=== PATIENT | male | born 1980 | race Caucasian/White ===

== ENCOUNTER 2020-02-10 08:50 | Inpatient (IN) ==
--- NOTE | 2020-02-06 11:47 | Anesthesiology Consultation ---
Date of Service February 06, 2020 Assessment & Plan (1) Encounter for pre-operative examination: Chart Review Chart Review: Acceptable Risk for Surgery and Patient NOT seen in Pre Admission Testing Left L5-S1 microdiscectomy 10/28/13= Done under GA- Grade 3 view with MAC #3 with ETT # 7.5 - no issues noted per anesthesia record History Surgery Operation Date: 02/10/20 10:35 Proposed Procedures p L5-S1 Decompression and Fusion, Spinal Cord Monitoring - Chalino Kwong DO Height/Weight Height: 6 ft 2 in Weight: 104.326 kg Allergies Allergy/AdvReac Type Severity Reaction Status Date / Time cashew nut Allergy Severe throat Verified 02/10/20 09:10 swells up/rash all over body tramadol AdvReac Mild Gastrointestinal Verified 02/10/20 09:10 Upset Medications Home Medications Medication Instructions Recorded Confirmed Last Taken omeprazole magnesium [Prilosec OTC] 20 mg PO DAILY PRN 02/05/20 02/10/20 02/10/20 07:30 Active Medications Generic Name Dose Route Start Last Admin Trade Name Shayna PRN Reason Stop Dose Admin Acetaminophen 1,000 mg 02/10/20 06:00 02/10/20 09:32 Tylenol PO 02/10/20 18:00 1,000 mg PREOP TIFFANY Administration Celecoxib 200 mg 02/10/20 06:00 02/10/20 09:32 Celebrex PO 02/10/20 18:00 200 mg PREOP TIFFANY Administration Gabapentin 900 mg 02/10/20 06:00 02/10/20 09:32 Neurontin PO 02/10/20 18:00 900 mg PREOP TIFFANY Administration Lactated Ringer's 1,000 mls @ 15 mls/hr 02/10/20 06:00 02/10/20 09:33 Lr IV 02/11/20 05:59 15 mls/hr .Q24H TIFFANY Administration Past Medical History Medical History Degenerative disc disease History of anxiety no meds currently History of kidney cancer 2009--left kidney History of kidney stones History of tachycardia very intermittent, pt states approx once a year it happens, 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 Lumbar stenosis Melanoma of left side of neck Sleep apnea cpap Past Family History Family History Mother Family history of diabetes mellitus Family hx colonic polyps Grandmother (Maternal) Family history of diabetes mellitus Family hx colonic polyps Uncle Family history of diabetes mellitus Family hx colonic polyps Uncle Family history of diabetes mellitus Family hx colonic polyps Aunt Family hx colonic polyps Other No family history of adverse response to anesthesia Past Surgical History Surgical History History of fusion of cervical spine normal ROM History of melanoma excision with sentinel lymph node removal of left side of neck History of partial nephrectomy left kidney 09/2010 @ [facility] [place] History of wisdom tooth extraction Status post lumbar microdiscectomy 10/29/13 @ [facility] Dr. Kwon L5-S1 Social History Smoking Status: Former smoker tobacco type: smokeless tobacco Do You Dip or Chew Tobacco: Yes (1 1/2cans a day) Smoking End Date: quit 18 yrs ago Hx Alcohol Use: Yes Alcohol type: beer and wine alcohol intake frequency: holidays/special occasions only Hx Substance Use: No substance use type: does not use Physical Exam Vital Signs Last Vital Signs Temp 37.5 C 02/10/20 09:20 Pulse 86 02/10/20 09:20 Resp 18 02/10/20 09:20 BP 117/83 02/10/20 09:20 Pulse Ox 99 02/10/20 09:20 Testing Laboratory Results Urine Color Yellow 02/10/20 09:07 Urine Appearance Clear (Clear) 02/10/20 09:07 Urine pH 5.0 (4.5-7.5) 02/10/20 09:07 Ur Specific [place] 1.022 (1.000-1.030) 02/10/20 09:07 Urine Protein Negative (Negative) 02/10/20 09:07 Urine Glucose (UA) Negative (Negative) 02/10/20 09:07 Urine Ketones Negative (Negative) 02/10/20 09:07 Urine Nitrite Negative (Negative) 02/10/20 09:07 Ur Leukocyte Esterase Negative (Negative) 02/10/20 09:07 Blood Type O Positive 02/10/20 09:07 Antibody Screen NEGATIVE 02/10/20 09:07 02/05/20= WBC: 5.34 H/H: 14.3/43.3 PLATELETS: 293 SODIUM: 143 POTASSIUM: 4.7 CHLORIDE: 104 CO2: 27 BUN: 11 CREATININE: 1.1 GLUCOSE: 105 Electrocardiogram Date: 02/06/20 Findings: + NSR @ (63) and + no change from (April 16, 2018) Chest X-Ray Date: 02/05/20 Findings: + NAD There is ACDF hardware in the lower cervical spine
--- NOTE | 2020-02-09 14:22 | History & Physical Report ---
Date of Service February 09, 2020 Assessment & Plan (1) Recurrent herniation of lumbar disc: This time the patient had a marked decline in status. He has recurrence of the discrimination at L5-S1 with significant progressive weakness affecting the left lower extremity. We are recommending urgent revision pression and fusion L5-S1. This will allow us nerves addressing recurrent disc herniation. This will progression of weakness and he will he may regain some recovery and avoid permanent neurologic sequelae. Risk benefits pros cons and alternatives were outlined in detail. Present on Admission?: Yes History of Present Illness Chief Complaint: Left leg pain and weakness This is a 39-year-old male who presents with marked decline in status noting significant left leg sciatica with weakness. He does have history of previous laminotomy at L5-S1 years ago. He had recurrent symptoms several months ago beginning with lumbosacral back pain rating into the left buttock posterior thigh into the calf and heel. It has been progressive in nature. He notes marked difficulty with pushoff on the left lower extremity compared to the right lower extremity. He has failed a course of nonoperative care and remarkably limited at this time unable to work. Allergies Allergy/AdvReac Type Severity Reaction Status Date / Time cashew nut Allergy Severe throat Verified 02/05/20 15:58 swells up/rash all over body tramadol AdvReac Mild Gastrointestinal Verified 02/05/20 15:58 Upset Home Medications Home Medications Medication Instructions Recorded Confirmed Type omeprazole magnesium [Prilosec OTC] 20 mg PO DAILY PRN 02/05/20 02/05/20 History Past Med/Surg History Medical History Degenerative disc disease History of anxiety no meds currently History of kidney cancer 2009--left kidney History of kidney stones History of tachycardia very intermittent, pt states approx once a year it happens, 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 Kwon L5-S1 Family History Mother Family history of diabetes mellitus Family hx colonic polyps Grandmother (Maternal) Family history of diabetes mellitus Family hx colonic polyps Uncle Family history of diabetes mellitus Family hx colonic polyps Uncle Family history of diabetes mellitus Family hx colonic polyps Aunt Family hx colonic polyps Other No family history of adverse response to anesthesia Social History Preferred Language: Upper Sorbian Communication Ability: Effective Clinic Charge Nurse Required: No Beliefs That Will Affect Care: None Current Living Situation: Spouse and Family Current Living Situation Comment: Lives with and daughter Other Information That Helps Us Care for You: No Feels Safe at Home: Yes Safety Concerns: Feels Safe At This Time Smoking Status: Former smoker Tobacco Type: smokeless tobacco ; Do You Dip or Chew Tobacco: Yes (1 1/2cans a day) ; Smoking End Date: quit 18 yrs ago ; Second Hand Exposure: Yes (parents smoked) ; Tobacco Cessation Education Requested by Patient: No Hx Alcohol Use: Yes Alcohol type: beer and wine Hx Substance Use: No Physical Exam Physical Exam: Patient is alert and oriented He is able to stand and ambulate about the room with an antalgic gait. He has marked deficits with single heel raise with the left lower extremity compared to the right lower extremity. Dorsiflexion quadriceps are however a 5 or 5 bilaterally. He does have sensory deficits to left lower extremity compared to the right. Heart is regular rate and rhythm Lungs clear to auscultation Results & Data Diagnostic Findings MRI lumbar spine demonstrates relative maintenance of lumbar lordosis with evidence of advanced degenerative change at the L5-S1 level. There is evidence of Modic disease involving endplates. There is evidence of a massive central disc herniation favoring the left side at the L5-S1 level. There is advanced neuroforaminal stenosis L5-S1 on the left. There is marked displacement of traversing roots at this level. All other levels are relatively benign.
[~2020-02-10 08:50] MED LIST: ACETAMINOPHEN 500 MG TAB PO SCH; CEFAZOLIN 2000MG 2,000 MG/15 ML SYR IV SCH; CeleBREX 200 MG CAP PO SCH; GABAPENTIN 900 MG DOSE PO SCH; LR 15ML/HR IV SCH
[2020-02-10] MEDS ORDERED: DEXAMETHASONE SOD INJ 4 MG/ML VIAL ONE (09:33)
[2020-02-10] MEDS ORDERED: ROCURONIUM BROMIDE 10 MG/ML 5 ML VIAL ONE ×5 (09:33→12:46)
[2020-02-10] MEDS ORDERED: PROPOFOL IV EMULSION 10 MG/ML 20 ML VIAL IV ONE (09:33)
[2020-02-10] MEDS ORDERED: HYDROmorphone INJ 2 MG/ML SYR/VIAL ONE (09:33)
[2020-02-10] MEDS ORDERED: ONDANSETRON INJ 2 MG/ML 2 ML VIAL ONE (09:33)
[2020-02-10] MEDS ORDERED: fentaNYL citrate 100 MCG/2 ML VIAL ONE ×4 (09:33→14:01)
[2020-02-10] MEDS ORDERED: MIDAZOLAM HCL 1 MG/ML 2ML VIAL ONE (09:33)
[2020-02-10] MEDS ORDERED: LIDOCAINE HCL 2% 2 ML VIAL/AMP(20MG/ML) INFIL ONE (09:33)
[2020-02-10 09:38] LABS: Appearance Urine Clear (Clear); Bilirubin Urine Negative (Negative); Blood Urine Negative (Negative); Color Urine Yellow; Glucose Urine UA Negative (Negative); Ketones Urine Negative (Negative); Leukocyte Esterase Urine Negative (Negative); Nitrite Urine Negative (Negative); Protein Urine Negative (Negative); Specific Gravity Urine 1.022 (1.000-1.030); Urobilinogen Urine Negative (Negative)
[2020-02-10] MEDS ORDERED: PROMETHAZINE HCL 12.5 MG in SODIUM CHLORIDE 0.9% 50 ML IV PRN ×2 (10:40→15:07)
[2020-02-10] MEDS ORDERED: HYDROmorphone INJ 2 MG/ML SYR/VIAL IV PRN (10:40)
[2020-02-10] MEDS ORDERED: ePHEDrine sulfate 50 MG/ML AMP IV PRN (10:40)
[2020-02-10] MEDS ORDERED: ONDANSETRON INJ 2 MG/ML 2 ML VIAL IV PRN ×2 (10:40→15:07)
[2020-02-10] MEDS ORDERED: ATROPINE SULFATE 0.1 MG/ML 10ML SYR IV PRN (10:40)
--- NOTE | 2020-02-10 10:45 | History & Physical Bridge Note ---
Date of Service February 10, 2020 History & Physical Bridge Note I have examined the patient, reviewed the History & Physical and in the interval since the performance of the History & Physical I have noted the following changes of clinical significance: no changes noted
[2020-02-10] MEDS ORDERED: BACITRACIN INJ 50,000 UNIT VIAL ONE (11:15)
[2020-02-10] MEDS ORDERED: BUPIVACAINE/EPINEPHRINE 0.5% MPF 1:200,000 10 ML VIAL ONE (11:15)
[2020-02-10] MEDS ORDERED: FLOSEAL HEMOSTATIC MATRIX 10ML TOP ONE (12:45)
--- NOTE | 2020-02-10 13:26 | Operative Report ---
Post Operative Report Pre & Post Diagnosis Operation Date: 02/10/20 10:35 Pre-Op Diagnosis: Recurrent herniation of lumbar disc Post-Op Diagnosis: Recurrent herniation of lumbar disc I identified the patient and participated in the time-out.: Yes Procedure Operation Date: 02/10/20 10:35 Actual Procedures #1 revision decompression fusion L5-S1. #2 posterior spinal fusion L5-S1. #3 placement posterior instrumentation L5-S1. #4 interbody fusion L5-S1. #5 placement peek cage 12 x 26 mm at L5-S1. #6 placement locally harvested morselized autograft in the posterior lateral gutters. #7 placement infuse collagen sponge count master graft in the posterior lateral gutters and ostial amp and interbody space. Surgeon Chalino Kwong DO Open Winder Lacie Mclaughlin Estimated Blood Loss 100 Findings Consistent with Post-Op Diagnosis Specimens None Indications This is a 39-year-old male who presents with a recurrent disc herniation at L5- S1 and progressive neurologic deficit affecting the left lower extremity. Subsequently we progressed with an urgent revision decompression and fusion. Description of Procedure Patient was met with identified informed consent obtained. Patient was then taken to the operative suite underwent intubation placed in a prone position the Chance table on top of the Seth frame. All bony prominences well-padded eyes inspected to ensure no external pressure placed upon the bed this point the lumbar spine is prepped and draped in a normal sterile fashion. Sharp dissection with the assistance of Bovie cautery was performed down to and exposing the remaining lamina and transverse processes of L5 and sacral ala bilaterally. From a caudal cephalad fashion a revision complete laminectomy of L5 was performed including bilateral medial facetectomies and foraminotomies. Identified marked scarring of the traversing and exiting nerve roots of L5 and S1 on the left. Pedicle screws were then placed in L 5 and the S1 levels bilaterally with assistance of fluoroscopy and appropriate size klaus placed. By way of a trans-foraminal approach on the left complete discectomy of L4-5 S1 was performed including addressing all herniated fragments. The endplates were then burred to subcortical bleeding bone and a 12 x 26 mm peek cage filled with o steo-bone graft tapped in position. The rods were then locked into final position bilaterally. The transverse processes of L5 and sacral ala burred to subcortical bleeding bone. Infuse collagen sponge master graft local autograft placed in the posterior lateral gutters. 15 round DARREN drain inserted. The incision was then closed with 1 Vicryl in the fascia 2-0 Vicryl subcutaneously and 4 Monocryl for final skin closure. Steri-Strip sterile dressings placed. Patient will continue to PACU stable condition. Please note Lacie Mclaughlin was present at the entire procedure.the patient positioning complex portions of the surgery and final skin closure. Lastly spinal cord monitoring was utilized that the procedure no changes noted. I attest to the content of the Intraoperative Record and any orders documented therein. Any exceptions are noted below.
--- NOTE | 2020-02-10 13:44 | Fluoroscopy Report ---
FL lumbar spine 2-3V CLINICAL HISTORY: L5-S1 DECOMPRESSION AND FUSION COMPARISON STUDY: None. FLUOROSCOPY TIME: 14 seconds. FLUOROSCOPIC IMAGES: 2 FINDINGS: These images demonstrate an L5-S1 discectomy with interbody spacer placement. Posterior dec ompression with bilateral pedicle screw fusion at L5-S1 is noted. The hardware is intact. There are n o unexpected radiopaque foreign bodies. IMPRESSION: Fluoroscopy provided for L5-S1 discectomy, posterior decompression and bilateral pedicle screw fusion. ACT 112: Negative or not required by law. Electronically signed by: Kodak Haskins M.D. 02/10/2020 1:43 PM
[2020-02-10] MEDS ORDERED: KETOROLAC 30 MG/ML VIAL ONE (13:50)
[2020-02-10] MEDS: fentaNYL citrate 100 MCG/2 ML VIAL IV PRN ×2 (14:13→14:19)
--- NOTE | 2020-02-10 14:43 | Anesthesiology Progress Note ---
Date of Service February 10, 2020 Anesthesia Post Procedure Vital Signs Vital Signs: Temp Pulse Pulse Resp BP Pulse Ox 02/10/20 14:30 36.8 C 62 13 118/69 100 02/10/20 14:20 61 12 109/68 99 02/10/20 14:10 63 18 126/41 L 100 02/10/20 14:04 36 C L 65 16 128/62 99 02/10/20 09:20 37.5 C 86 18 117/83 99 Pain Intensity Left Lower Back: Pain Intensity: 6 Back: Pain Intensity: 4 Transfer of Care Handoff Completed per policy Notes Mental Status: alert / awake / arousable and participated in evaluation Patient Amnestic to Procedure: Yes Nausea / Vomiting: adequately controlled Pain: adequately controlled Airway Patency, RR, SpO2: stable & adequate BP & HR: stable & adequate Hydration State: stable & adequate Anesthetic Complications: no major complications apparent and Pt Satisfied with anesthetic care
[2020-02-10] MEDS ORDERED: SOD PHOSPHATE/SOD BIPHOSPHATE ENEMA 132 ML BTL PR PRN (15:07)
[2020-02-10] MEDS ORDERED: bisacodyL 10 MG SUPP PR PRN (15:07)
[2020-02-10] MEDS ORDERED: NALOXONE HCL 0.4 MG/1 ML VIAL/CARP IV PRN (15:07)
[2020-02-10] MEDS ORDERED: DO NOT ADMINISTER PNEUMOCOCCAL VACCINE PRN (15:07)
[2020-02-10] MEDS ORDERED: MAGNESIUM HYDROXIDE SUSP 30 ML UDC PO PRN (15:07)
[2020-02-10] MEDS ORDERED: FAMOTIDINE 20 MG TAB PO PRN (15:07)
[2020-02-10] MEDS ORDERED: DO NOT ADMINISTER FLU VACCINE PRN (15:07)
[2020-02-10] MEDS ORDERED: LORazepam 0.5 MG/1 ML VIAL IV PRN (15:07)
[2020-02-10] MEDS ORDERED: ALUMINUM/MAGNESIUM SUSP 30 ML UDC PO PRN (15:07)
[2020-02-10] MEDS ORDERED: ACETAMINOPHEN 1,000 MG/100 ML VIAL IV PRN (15:07)
[2020-02-10] MEDS ORDERED: METOCLOPRAMIDE HCL INJ 5 MG/ML 2 ML VIAL IV PRN (15:07)
[2020-02-10] MEDS ORDERED: ONDANSETRON 4 MG OD TAB PO PRN (15:07)
[2020-02-10] MEDS ORDERED: PANTOprazole 40 MG TAB PO PRN (15:23)
[2020-02-10 16:00] LABS: Creatinine Clr Calc Pharmacy 135.3 ml/min; Est GFR (African American) 117.9; Est GFR (Non-African American) 101.7
[2020-02-10] MEDS: LACTATED RINGER'S 1,000 ML IV SCH (16:03)
[2020-02-10] MEDS: OXYCODONE HCL IR 5 MG TAB (IMMEDIATE RELEASE) PO PRN ×2 (16:56→21:28)
[2020-02-10] MEDS: DOCUSATE SODIUM/SENNA 50/8.6MG TAB PO SCH (20:00)
[2020-02-10] MEDS: CEFAZOLIN 2000MG 2,000 MG/15 ML SYR IV SCH (20:01)
[2020-02-10] MEDS: KETOROLAC TROMETHAMINE 15 MG/ML VIAL IV SCH (20:01)
[2020-02-10] MEDS: LORazepam 0.5 MG TAB PO PRN (22:31)
[2020-02-11] MEDS: KETOROLAC TROMETHAMINE 15 MG/ML VIAL IV SCH ×3 (03:17→13:01)
[2020-02-11] MEDS: CEFAZOLIN 2000MG 2,000 MG/15 ML SYR IV SCH (03:17)
[2020-02-11] MEDS: LACTATED RINGER'S 1,000 ML IV SCH (03:26)
[2020-02-11] MEDS: POLYETHYLENE (MIRALAX) 17 GM PACK PO SCH ×4 (05:16→23:55)
[2020-02-11 06:02] LABS: Hematocrit (blood only) 36.3 % (42-52); Hemoglobin 12.4 g/dL (14.0-18.0); Immature Granulocytes # (auto) 0.03 K/uL (0.00-0.02); Immature Granulocytes % (auto) 0.3 %; Lymphocytes # (auto) 1.45 K/uL (1.2-3.4); Lymphocytes % (auto) 12.7 %; Mean Corpuscular Hemoglobin 30.3 pg (25-34); Mean Corpuscular Hgb Conc 34.2 g/dL (32-36); Mean Corpuscular Volume 88.8 fL (80-100); Mean Platelet Volume 10.1 fL (7.4-10.4); Monocytes # (auto) 0.74 K/uL (0.11-0.59); Monocytes % (auto) 6.5 %; Neutrophils # (auto) 9.19 K/uL (1.4-6.5); Neutrophils % (auto) 80.5 %; Platelet Count 255 K/uL (130-400); RDW Coefficient of Variation 13.6 % (11.5-14.5); RDW Standard Deviation 44.5 fL (36.4-46.3); Red Blood Count 4.09 M/uL (4.7-6.1); White Blood Count 11.41 K/uL (4.8-10.8)
[2020-02-11 06:31] LABS: Calcium 8.7 mg/dl (8.5-10.1); Creatinine Clr Calc Pharmacy 128.4 ml/min; Est GFR (African American) 110.7; Est GFR (Non-African American) 95.5; Potassium 4.2 mmol/L (3.5-5.1)
[2020-02-11] MEDS: OXYCODONE HCL IR 5 MG TAB (IMMEDIATE RELEASE) PO PRN ×3 (09:11→23:54)
--- NOTE | 2020-02-11 10:44 | Orthopedic Progress Note ---
Date of Service February 11, 2020 Assessment & Plan (1) Recurrent herniation of lumbar disc: At this time we will continue physical therapy monitor his DARREN output hopefully discharge home tomorrow. Present on Admission?: Yes Admission and Anticipated Discharge Date Admission Date: February 10, 2020 Subjective Back pain controlled leg pain improved. Feels her strength is improved. Physical Exam Physical Exam: Patient is comfortable is in bed. He has good strength testing. Results & Data ([facility]) Vital Signs (Past 12 Hours) Vital Signs Temp Pulse Resp BP Pulse Ox 02/11/20 07:47 36.4 C L 72 18 117/74 98 02/11/20 03:00 36.4 C L 69 16 114/71 96 02/10/20 23:00 36.8 C 74 20 117/70 96
[2020-02-11] MEDS: HYDROmorphone INJ 1 MG/ML SYRINGE IV PRN ×3 (14:37→22:12)
[2020-02-11] MEDS: DOCUSATE SODIUM/SENNA 50/8.6MG TAB PO SCH (20:26)
[2020-02-11] MEDS: LORazepam 0.5 MG TAB PO PRN (23:54)
[2020-02-12] MEDS: HYDROmorphone INJ 0.5 MG/0.5 ML SYR IV PRN ×2 (03:21→08:36)
[2020-02-12] MEDS: POLYETHYLENE (MIRALAX) 17 GM PACK PO SCH ×2 (05:55→12:07)
[2020-02-12] MEDS: OXYCODONE HCL IR 5 MG TAB (IMMEDIATE RELEASE) PO PRN ×3 (05:55→15:31)
--- NOTE | 2020-02-12 14:49 | Discharge Summary ---
Date of Service February 12, 2020 Admission HPI Per Admitting Provider This is a 39-year-old male who presents with marked decline in status noting significant left leg sciatica with weakness. He does have history of previous laminotomy at L5-S1 years ago. He had recurrent symptoms several months ago beginning with lumbosacral back pain rating into the left buttock posterior thigh into the calf and heel. It has been progressive in nature. He notes marked difficulty with pushoff on the left lower extremity compared to the right lower extremity. He has failed a course of nonoperative care and remarkably limited at this time unable to work. Principal Diagnosis Recurrent disc herniation L5-S1 Discharge Data Allergies Allergy/AdvReac Type Severity Reaction Status Date / Time cashew nut Allergy Severe throat Verified 02/10/20 09:10 swells up/rash all over body tramadol AdvReac Mild Gastrointestinal Verified 02/10/20 09:10 Upset Consultations 02/10/20 15:07 Consult Case Management - Discharge Planning Routine Procedures Performed Operation Date: 02/10/20 10:35 Actual Procedures p L5-S1 Decompression and Fusion, Spinal Cord Monitoring(Not Applicable) - Chalino Kwong DO Ordered Studies 02/10/20 07:00 FL fluoroscopy <1hr Routine FL lumbar spine 2-3V Routine Hospital Course (1) Recurrent herniation of lumbar disc: Patient underwent revision decompression fusion tolerated as well as taken to the orthopedic floor postoperative. Postop day #1 and strength is improving he was tolerating physical therapy. He progressed to postop day #2. DARREN drain decreasing probably. Subsequently discharged home. Discharge orders and instructions from the chart for further review. Total Time Total Time Spent Total Time Spent (In Minutes): 20 minutes Discharge Plan Discharge Items Patient Disposition: Home - Self-Care Reason For Visit: Other Intervertebral Disc Displacement Discharge Diagnosis: Recurrent disc herniation L5-S1 Activity: As commented below Non-emergency contact: Primary Care Provider Call non-emergency contact if: you have any medication questions Follow-up/Referrals: PCP,NO [Primary Care Provider] - Diet: Regular Addtl Attending Provider Instructions: ACTIVITY RECOMMENDATIONS: SELF CARE INSTRUCTIONS AFTER THORACIC/LUMBAR FUSIONS 1. You may walk to your tolerance. It is good exercise for your legs and back. Expect some back and intermittent leg aches and pains. 2. You may perform "counter-top" level activities (make a sandwich, mariza with a project, etc.). 3. No bending or lifting of more than 10 pounds or back twisting of any nature (roll like a log when turning in bed). 4. You may ride in a car for 20-30 minutes at a time. No driving until after your first visit with your doctor. 5. Frequent changes of position and restricting sitting to 30 minutes at a time will help limit the amount of back spasms and stiffness you may experience. 6. You may discontinue the use of ambulatory aids (cane, crutches, etc.) once your strength and confidence allow. 7. You may meat inspector the shower and let water strike your incision when you arrive home at least once daily. Do not take a tub bath, sit in a hot tub or go into a swimming pool until after your first recheck in the office. SPECIAL CARE INSTRUCTIONS: VERY IMPORTANT TO READ AND REVIEW A. Your surgical incision has been closed with a cosmetic suture under the skin that will dissolve in about 6 weeks. In 14 days, you can use a pair of clean scissors and cut the suture that is left outside of the skin at the ends of your incision. 1. The small skin tapes can be removed 7 days after surgery if they have not fallen off by that point. 2. You may keep the wound open to air as much as possible to promote healing after post-op day number 5 unless told otherwise by your doctor. 3. If you think the wound looks like it is becoming infected (redness or worsening drainage) and/or you are experiencing fever, chill or worsening back pain and muscle spasms, contact the office so that we may evaluate you as soon as possible. B. Complications are uncommon, but please contact us if you have any signs or symptoms of: 1. wound infection (fever higher than 102.5 degrees F, redness, separation of wound, drainage, or increasing pain from the incision) 2. blood clots in legs (pain, swelling, redness and warmth in legs) 3. urinary tract infection (fever higher than 102.5 degrees F, burning upon urination or increased frequency of urination) 4. nerve problems (inability to walk on your toes or heels, numbness, loss of bowel or bladder control) 5. any other symptoms that concern you C. Please call the office at if you have any concerns or questions about your operation or recovery. D. No smoking! Smoking drastically decreases the chance of a solid fusion. E. Do not take any anti-inflammatory medications (Indocin, Advil, Motrin, Aspirin, Naprosyn, etc.) as these may inhibit the chance of a solid fusion. Tylenol is okay to take for pain. MANAGING PAIN AFTER SPINAL SURGERY 1. Narcotic medication is intended for short-term use and will be provided for surgical pain. Surgical pain usually lasts for a period of 4-6 weeks. Narcotic medication includes Percocet, Vicodin, Darvocet, Tylenol #3 or Lortab. 2. Longer-term pain is more appropriately treated with non-narcotic medication such as Tylenol ES. 3. Muscle spasm is not appropriately treated with narcotics. Muscle relaxers such as Soma, Flexeril or Skelaxin can be used along with Tylenol ES. 4. Remember that we all live with some "aches and pains". This is not unusual or uncommon after an injury or as we get older. a. Back pain is expected and may include muscle spasms for 4 to 6 weeks after surgery. The pain should gradually improve. If the pain worsens for no apparent reason, please contact the office. b. Intermittent leg pain may also be experienced and should not be concerned about unless it worsens for no apparent reason. If so, please contact the office. 5. We will provide appropriate medication within the normal guidelines of their prescribed use. We will also be very cautious and aware of potential abuse and extended duration of patients' medication needs. a. Pain medications are for your comfort and to assist with sleep and rest so that the tissue can heal. They are not provided in order to return to normal activity and should not be used through the day. To do so or worsening pain at night can result from ongoing tissue damage and development of tolerance to the prescribed medicine. 6. Please allow 2-3 days to process refills. Prescriptions will not be mailed but must be picked up at the office. FOLLOW UP VISIT: Keep your scheduled follow-up appointment. Any questions, please call the office at . Pending Studies at Discharge: No Stand-Alone Forms: My [facility] Poll Everywhere, Opioid Pain Management, Smoking Cessation Medications and DC Order Prescriptions: New tramadol 50 mg tablet 50 mg PO Q6H PRN (Reason: pain, moderate) Qty: 30 RF: 0 oxycodone 5 mg tablet 5 mg PO Q6H PRN (Reason: pain, severe) Qty: 20 RF: 0 Continued Prilosec OTC 20 mg Tablet,Delayed Release (Dr/Ec) 20 mg PO DAILY PRN (Reason: Acid Reflux) RF: 0 Discharge Orders: Discharge Order (Routine); Ordered 02/12/20 Ordered By: Chalino Jolly/Other Patient Handouts: Back How Works, Back Pain Relieve, Back Safety Lifting, Fusion Spinal Admission Data Admit Date/Time: 02/10/20 14:15 Attending Provider: Chalino Kwong Admit Provider: Chalino Kwong Primary Care Provider: PCP,NO Other Interventions: Discharge Summary Assessment (RN) Last Done: 02/12/20 13:43
== END 2020-02-12 16:19 | disposition home or self-care (01) | DRG 455 ==
LOC: ASU 08:50 → 3E 14:15
DX: M51.26 Other intervertebral disc displacement, lumbar region